=== PATIENT | female | born 1980 | race Caucasian/White ===

== ENCOUNTER 2025-01-17 14:07 | Outpatient (CLI) | payer OTHER, SELFPAY ==
--- NOTE | 2025-01-17 14:30 | CRLHL7_ITS ---
For Patients: As a result of the 21st Century Cures Act, medical imaging exams and procedure reports are released immediately into your electronic medical record. You may view this report before your referring provider. If you have questions, please contact your health care provider. BILATERAL BREAST MRI WITHOUT AND WITH GADOLINIUM CLINICAL HISTORY: 44-year-old female with recently diagnosed LEFT breast cancer. INDICATION FOR BREAST MRI: Staging of newly diagnosed breast cancer and screening of contralateral breast. Regional lymph nodes will also be assessed. COMPARISON STUDIES: Mammogram 12/18/2024, additional mammographic views of the LEFT breast and LEFT breast ultrasound 01/06/2025. CONTRAST: 20 mL Dotarem IV. TECHNIQUE: The patient was positioned prone using a breast coil. Multiple imaging sequences were obtained using 1-1.5 mm thick slices with no gap. The image sequences include T2-weighted STIR in the axial plane, T1-weighted nonfat-saturated gradient echo in the axial plane, pre- and post-contrast T1-weighted FLASH 3D with fat suppression in the axial plane, and T1-weighted FLASH high resolution 3D with fat suppression in the sagittal plane. Image post-processing was performed on a Microstim workstation. Complex 3D rendering including maximum intensity projections (MIPS) and volumetric renderings were obtained to optimize visualization of the extent of pathology and relationship to the nipple, skin, and chest wall. This aids in determining feasibility of breast conservation surgery. Subtraction, multiplanar reconstruction, mean curve determination, and angiogenesis mapping were also performed. The study was technically adequate. FINDINGS: Amount of Fibroglandular Tissue: Scattered fibroglandular tissue. Breast Background Enhancement: Mild. RIGHT Breast: No suspicious areas of enhancement. LEFT Breast: At 2-3 o`clock, posterior depth there is an irregular mass with irregular margins and heterogeneous internal enhancement measuring 4.1 x 1.8 x 3.1 cm. This demonstrates fast initial enhancement with washout. Artifact from a biopsy marker clip is seen within the mass. This is consistent with the biopsy-proven malignancy. Enhancement is seen extending into the underlying pectoralis muscle (axial image 49 through 61). There is extensive edema within the pectoralis muscle. At 8-9 o`clock, middle depth there is an irregular mass with irregular margins and heterogeneous internal enhancement measuring 1.0 x 1.1 x 1.1 cm. This demonstrates fast initial enhancement with washout. Artifact from a biopsy marker clip is present. This is consistent with the site of biopsy-proven malignancy. The distance between the masses is approximately 6 cm. Lymph Nodes: There is an abnormal LEFT level 1 axillary lymph node with loss of the fatty hilum and diffuse cortical thickening measuring 1.8 x 1.4 cm. This contains a biopsy marker clip. There is at least one other abnormal axillary lymph node with eccentric cortical thickening. There is a LEFT internal mammary lymph node which measures 0.5 cm in short axis and is indeterminate. No right-sided adenopathy. IMPRESSIONS AND RECOMMENDATIONS: LEFT Breast: 1. Mass at 2-3 o`clock, posterior depth measuring up to 4.1 cm on MRI is consistent with the biopsy-proven malignancy. There is chest wall invasion with enhancement extending into the underlying pectoralis muscle. 2. Mass at 8-9 o`clock, measuring up to 1.1 cm is consistent with the site of biopsy-proven malignancy. 3. Abnormal LEFT axillary lymph node, consistent with the known neda metastasis. 4. Borderline LEFT internal mammary lymph node measuring up to 0.5 cm in short axis is indeterminate. RIGHT Breast: Negative, there is no MRI evidence of contralateral malignancy. BI-RADS Category 6: Known biopsy-proven malignancy Dictated by Mariam Walker MD @ 01/20/2025 9:43:32 AM /Dictated by: Mariam Walker MD @ 01/20/2025 9:43:00 AM (Electronically Signed)
== END 2025-01-17 14:08 | disposition home or self-care (01) ==
PROVIDERS: PCP Family Medicine; Visit Provider Surgery
DX: C50.912 Malignant neoplasm of unspecified site of left female breast (principal); R59.0 Localized enlarged lymph nodes
CPT/HCPCS: 77049; C8908; C8937; A9575

== ENCOUNTER 2025-02-06 07:55 | Day surgery (SDC) | payer OTHER, SELFPAY ==
[2025-02-06 08:16] VITALS: BMI 29.9
[2025-02-06 08:23] VITALS: BP 122/82; PULSE 68; RESP 16; TEMP 36.6; O2SAT 99
[2025-02-06 08:29] LABS: Ur HCG Qualitative* Negative (Negative)
[2025-02-06] MEDS: SODIUM CHLORIDE 0.9 % (FLUSH) 10 ML SYRINGE IVF (08:43)
[2025-02-06] MEDS: LACTATED RINGERS 1000 ML 1,000 ML 100 ML IV (08:45)
--- NOTE | 2025-02-06 09:30 | CRLHL7_ITS ---
For Patients: As a result of the Century Cures Act, medical imaging exams and procedure reports are released immediately into your electronic medical record. You may view this report before your referring provider. If you have questions, please contact your health care provider. Indication: Port-A-Cath placement Technique: One fluoroscopic image of the chest. Fluoroscopic time 53.7 seconds. IMPRESSION: Fluoroscopic guidance for Port-A-Cath placement. Dictated by Skip Alfaro MD @ 02/06/2025 10:53:31 AM (Electronically Signed)
--- NOTE | 2025-02-06 10:04 | P.ANES_ITS ---
Anesthesia Charges Start Date/Time Anesthesia Start Date: 02/06/25 Anesthesia Start Time: 10:00 Stop Date/Time Anesthesia Stop Date: 02/06/25 Anesthesia Stop Time: 10:59 Coding CPT Codes CPT Codes: ANESTH VASCULAR ACCESS - 93710 ([id number]) P2 - PATIENT W/MILD SYST DISEASE, QK - GROMMET MACHINE OPERATOR 2-4 CNCRNT ANES PROC, QX - TRUCK MANAGER SVC W/ MD MED DIRECTION
--- NOTE | 2025-02-06 10:04 | W.ANESCHARGE ---
Anesthesia Charges Start Date/Time Anesthesia Start Date: 02/06/25 Anesthesia Start Time: 10:00 Stop Date/Time Anesthesia Stop Date: 02/06/25 Anesthesia Stop Time: 10:59 Coding CPT Codes CPT Codes: ANESTH VASCULAR ACCESS - 68367 ([id number]) P2 - PATIENT W/MILD SYST DISEASE, QK - IT PROFESSIONAL 2-4 CNCRNT ANES PROC, QX - DITCH DIGGER SVC W/ MD MED DIRECTION
--- NOTE | 2025-02-06 10:07 | W.PM.H&PU ---
History & Physical Update History & Physical Update H&P Reviewed and patient assessed: No changes noted
[2025-02-06] MEDS: BUPIVACAINE 0.5% 30 ML INJECTION (10:22)
[2025-02-06] MEDS: LIDOCAINE 1 % PF 30 ML INJECTION (10:22)
[2025-02-06] MEDS: HEPARIN 500 UNIT/5 ML SYRINGE IVF (10:37)
--- NOTE | 2025-02-06 10:50 | CRLHL7_ITS ---
For Patients: As a result of the Century Cures Act, medical imaging exams and procedure reports are released immediately into your electronic medical record. You may view this report before your referring provider. If you have questions, please contact your health care provider. INDICATION: Postop port placement TECHNIQUE: Chest 1 view COMPARISON: None FINDINGS: Right-sided Port-A-Cath is present with the tip in the right atrium. Lungs clear. No pneumothorax. IMPRESSION: No pneumothorax. Dictated by Skip Alfaro MD @ 02/06/2025 11:18:08 AM (Electronically Signed)
[2025-02-06 10:55] VITALS: BP 108/67; PULSE 68; RESP 16; TEMP 36.3; O2SAT 94
--- NOTE | 2025-02-06 10:58 | PM.GSPRC ---
Operative Note Date of procedure: 02/06/25 Pre-op diagnosis: Invasive ductal carcinoma, left breast Post-op diagnosis: Same Type of Procedure: Right internal jugular port a catheter Indications: Patient is a 44-year-old female with a new diagnosis invasive ductal carcinoma of the left breast. She was seen by Oncology with recommendations for neoadjuvant chemotherapy. Risks and benefits of port catheter placement were discussed at length with the patient. Risks and benefits of operative intervention were discussed at length with the patient. Risks included but was not limited to: Bleeding, infection, risk of damage to surrounding structures, possible need for additional procedures and postoperative complications such as pneumonia, pulmonary emboli or MO. All questions and concerns were addressed with the patient agreeing to proceed. Procedure Description: After discussing the risks and benefits of the procedure, the patient signed informed consent.? The operative site was marked and the patient was brought to the operating room and placed on the operating table in supine position.? Care was taken to pad the patient's pressure points.?? The patient was then given sedation by anesthesia.?? The operative site was then prepped and draped in the usual sterile fashion.? A time-out was then performed. The patient's right internal jugular vein was visualized using ultrasound. Local anesthetic was injected into the neck skin above the vein. A skin jace was made with an 11 blade. The vein was accessed percutaneously via Seldinger technique using ultrasound guidance. A skin jace was made around the wire. Next local anesthetic was injected into the skin below the clavicle and along the proposed tract to the neck incision. A skin incision was then made with a 15 blade and a pocket created in the chest wall with cautery. A tunneler was then used to thread the catheter from the chest wall pocket to the neck incision. Once this was done fluoroscopy was brought into the field. Over the wire the tract was dilated using fluoroscopy. The wire and the dilator were then removed leaving the sheath intact in the vein. Through this the catheter was threaded. Using fluoroscopy the catheter was positioned into the distal SVC. The catheter was noted to flush and aspirate easily. The catheter was then connected to the port. The port was placed in the pocket and secured in place with a medial and lateral stitch of 2 0 Prolene stay suture. It was noted to flush and aspirate easily. This was then locked with heparinized saline. The skin was closed with absorbable suture. Sterile dressings were applied. Instrument sponge and needle counts were correct at the end of the case. The patient was woken and taken to the PACU in stable condition. Findings: Compressible right internal jugular vein Anesthesia: MAC and local Surgeon: Ivone Santiago MD Estimated blood loss (mL): 5 Condition: stable Disposition: same day
--- NOTE | 2025-02-06 10:59 | P.ANES_ITS ---
Anesthesia Charges Start Date/Time Anesthesia Start Date: 02/06/25 Anesthesia Start Time: 10:00 Stop Date/Time Anesthesia Stop Date: 02/06/25 Anesthesia Stop Time: 10:59 Coding CPT Codes CPT Codes: ANESTH VASCULAR ACCESS - 03292 ([id number]) P2 - PATIENT W/MILD SYST DISEASE, QK - FIRE CONTROL TECHNICIAN 2-4 CNCRNT ANES PROC, QX - NAVAL GUNFIRE LIAISON OFFICER SVC W/ MD MED DIRECTION
--- NOTE | 2025-02-06 10:59 | W.ANESCHARGE ---
Anesthesia Charges Start Date/Time Anesthesia Start Date: 02/06/25 Anesthesia Start Time: 10:00 Stop Date/Time Anesthesia Stop Date: 02/06/25 Anesthesia Stop Time: 10:59 Coding CPT Codes CPT Codes: ANESTH VASCULAR ACCESS - 67735 ([id number]) P2 - PATIENT W/MILD SYST DISEASE, QK - SEWER CONTRACTOR 2-4 CNCRNT ANES PROC, QX - TECHNICAL MAINTENANCE TECHNICIAN SVC W/ MD MED DIRECTION
[2025-02-06 11:10] VITALS: BP 104/73; PULSE 67; RESP 16; O2SAT 97
[2025-02-06 11:25] VITALS: BP 119/86; PULSE 61; RESP 16; O2SAT 97
[2025-02-06 11:40] VITALS: BP 122/84; PULSE 62; RESP 16; TEMP 36.2; O2SAT 98
== END 2025-02-06 12:01 | disposition home or self-care (01) ==
PROVIDERS: PCP Family Medicine; Visit Provider Surgery
PROC: (CPT 36561; principal; 2025-02-06 09:30)
DX: Z45.2 Encounter for adjustment and management of vascular access device (principal); C50.912 Malignant neoplasm of unspecified site of left female breast
CPT/HCPCS: 36561; 00532; 71045; 76000; 76998; 81025; C1788; J0665; J0690; J1100; J1642; J2003; J2250; J2405; J2704; J3010; J7120

== ENCOUNTER 2025-02-07 07:03 | Outpatient (CLI) | payer OTHER, SELFPAY ==
--- NOTE | 2025-02-07 07:15 | CRLHL7_ITS ---
For Patients: As a result of the Cures Act, medical imaging exams and procedure reports are released immediately into your electronic medical record. You may view this report before your referring provider. If you have questions, please contact your health care provider. Indication: HYPERMETABOLIC RIGHT INGUINAL Lymph nodes Technique: Grayscale and color Doppler ultrasound of the right inguinal canal performed. Comparison: CT PET 01/23/2025 Findings: Right inguinal lymph nodes are present and measure 1.6 x 0.8 x 0.7 cm, 1.4 x 0.4 x 1.5 cm and 1.3 x 0.5 x 0.8 cm. Normal central fatty hanna noted. Normal internal vascularity. No significant cortical thickening. No abscess. Impression: Non suspicious mildly reactive right inguinal lymph nodes. These do not appear malignant. Dictated by Skip Alfaro MD @ 02/07/2025 9:54:21 AM (Electronically Signed)
[2025-02-07] MEDS: PERFLUTREN LIPID MICROSPHERES 2 ML VIAL IVP (08:54)
--- NOTE | 2025-02-07 09:15 | CRLHL7_ITS ---
For Patients: As a result of the Century Cures Act, medical imaging exams and procedure reports are released immediately into your electronic medical record. You may view this report before your referring provider. If you have questions, please contact your health care provider. Indication: Stage III breast cancer. Technique: Noncontrast sagittal T1, axial FLAIR, T2, diffusion, post contrast T1 weighted sequences are provided. No comparisons. 20 cc of Dotarem was administered intravenously. Findings: The ventricles, sulci and gyri are normal size, shape and contour for age. The midline structures are centrally located with no evidence of shift. There are no suspicious intra or extra-axial fluid collections. No region of restricted diffusion or suspicious regions of abnormal parenchymal enhancement. Expected flow voids in the cavernous carotids and basilar artery. Impression: 1. No radiographic evidence of acute intracranial abnormalities. Dictated by Derrek Jones MD @ 02/07/2025 1:50:39 PM (Electronically Signed)
== END 2025-02-07 07:04 | disposition home or self-care (01) ==
LOC: US 07:04
PROVIDERS: PCP Family Medicine; Visit Provider Internal Medicine Hematology & Oncology
DX: C50.919 Malignant neoplasm of unspecified site of unspecified female breast (principal); R59.0 Localized enlarged lymph nodes; Z51.81 Encounter for therapeutic drug level monitoring; Z79.899 Other long term (current) drug therapy
CPT/HCPCS: 70553; 76882; 93306; A9575; Q9957